=== PATIENT | female | born 1955 | race Asian ===

== ENCOUNTER 2016-02-23 10:39 | Day surgery (SDC) | payer MEDICARE, OTHER ==
[2016-02-22 11:48] VITALS: BMI 23.4
[~2016-02-23] VITALS: Ht 157.5 cm; Wt 48.1 kg
[~2016-02-23 10:39] MED LIST: AMLO-147 PO; APIX2.5T PO; CARV6.25 PO; CLOP75TA27 PO; HYDR-3671 PO; LANT3I SC; SEVE2.4P3 PO
[2016-02-23] MEDS ORDERED: AMLO-145 PO (11:23)
[2016-02-23] MEDS ORDERED: ATOR40TA68 PO (11:24)
[2016-02-23 11:28] VITALS: Ht 157.5 cm; Wt 48.1 kg
[2016-02-23 11:31] VITALS: BP 136/67; PULSE 86; RESP 18
[2016-02-23] MEDS ORDERED: MIDAZOLAM 1 MG/ML 2 ML INJ ONE (12:39)
[2016-02-23] MEDS ORDERED: IOHEXOL 350MG/ML 50 ML BTL ONE (12:39)
[2016-02-23] MEDS ORDERED: FENTAnyl 50 MCG/ML VIAL ONE (12:39)
[2016-02-23] MEDS ORDERED: LIDOCAINE 1% (MDV) 20 ML INJ ONE (12:39)
[2016-02-23] MEDS ORDERED: SOD CHLORIDE 0.9% 500 ML ONE (13:19)
[2016-02-23] MEDS ORDERED: HEPARIN 1000 UNITS/NS (A-LINE) 1,000 ML ONE (13:20)
[2016-02-23 13:37] VITALS: BP 121/20; PULSE 68; RESP 16
--- NOTE | 2016-02-23 15:39 | OPR ---
DATE OF OPERATION: 02/23/2016 PREOPERATIVE DIAGNOSIS: Failing left arm AV graft POSTOPERATIVE DIAGNOSIS: Failing left arm AV graft. PROCEDURE PERFORMED: Left arm arteriovenous fistulogram with percutaneous angioplasty of the arteri al anastomosis and distal brachial artery. SURGEON: Courtney Murray MD ANESTHESIA: Local anesthesia. ESTIMATED BLOOD LOSS: Minimal. COMPLICATIONS: No intraprocedural complications. INDICATIONS: This is a 60-year-old woman with end-stage renal disease who has been on dialysis now for more than a year. She has a left upper arm AV graft that thrombosed about a month ago. I declo tted it, and I noted she still had a narrowing at the arterial anastomosis. At that point, I had se veral sheaths in, and it would have been very difficult to treat, so I brought her back in to treat the arterial anastomosis. The graft has been functioning, and there is a decent thrill, but it is s everely narrowed right at the arterial anastomosis. PROCEDURE: The patient was brought to the tender labor and placed on the table in supine position. The left arm was prepped and draped in the usual sterile fashion. I began by infiltrating over the gra ft in the mid biceps region. I then punctured the graft pointing toward the elbow with the micropun cture needle. An 0.018 wire was inserted through the needle into the graft, and a micropuncture she ath was advanced over the wire into the graft. I then advanced an 0.035 wire into the graft and the n extensive 6-Vietnamese sheath over the wire and into the graft and then did an AV fistulogram that liang wed the graft itself is patent, the venous outflow is widely patent, and the central veins are paten t. There is a severe, greater than 95%, stenosis at the arterial anastomosis. It is really in the brachial artery extending right into the proximal graft. I advanced the Glidewire through the proxi mal anastomosis and into the proximal brachial artery. I then used the loop and then angiopla stied the arterial anastomosis and the brachial artery at the anastomosis with a 4 x 4 cm balloon to 8 atmospheres with no residual stenosis, and there was brisk flow in the graft. I removed all the catheters, sheaths, and wires, put a 4-0 Monocryl pursestring suture in the puncture site, and there was good hemostasis with a good thrill at the end of the procedure. She tolerated the procedure we ll without any complications. Dictated By: COURTNEY PICKERING/KENNY Conf#: [id number] DID#: [id number] CC: Vee Sampson MD; MILTON ESPINOZA MD;*EndCC*
== END 2016-02-23 14:40 | disposition home or self-care (01) ==
LOC: SDS 10:39
PROVIDERS: ATTEND Surgery Vascular Surgery
DX: T82.858A Stenosis of other vascular prosthetic devices, implants and grafts, initial encounter (principal); I12.0 Hypertensive chronic kidney disease with stage 5 chronic kidney disease or end stage renal disease; N18.6 End stage renal disease; Z99.2 Dependence on renal dialysis; E11.22 Type 2 diabetes mellitus with diabetic chronic kidney disease; Z79.82 Long term (current) use of aspirin; Y83.2 Surgical operation with anastomosis, bypass or graft as the cause of abnormal reaction of the patient, or of later complication, without mention of misadventure at the time of the procedure
CPT/HCPCS: 36901; 36902; 82962; 84132; C1725; C1769; C1894; J1644; J2250; J3010; J7040; Q9967

== ENCOUNTER 2016-06-21 10:51 | Day surgery (SDC) | payer MEDICARE, OTHER ==
[~2016-06-21] VITALS: Ht 154.9 cm; Wt 51.0 kg
[~2016-06-21 10:51] MED LIST changes: +AMLO-145 PO; -AMLO-147 PO; +ATOR40TA68 PO
[2016-06-21 12:02] VITALS: BP 103/59; PULSE 79; RESP 18; Ht 154.9 cm; Wt 51.0 kg
[2016-06-21 12:04] LABS: ADD SCAN DIFF NO
[2016-06-21 12:09] LABS: BASOPHILS % 0.5 % (0.0-2.0); EOSINOPHILS # 0.1 10^3/ul (0.0-0.5); EOSINOPHILS % 1.3 % (0.0-7.0); HEMATOCRIT 29.7 % (37.0-47.0); HEMOGLOBIN 10.4 g/dl (12.0-16.0); LYMPHOCYTES # 1.7 10^3/ul (0.8-2.9); LYMPHOCYTES % 20.6 % (15.0-51.0); MEAN CORPUSCULAR HEMOGLOBIN 33.9 pg (29.0-33.0); MEAN CORPUSCULAR VOLUME 96.7 fl (82.0-101.0); MEAN PLATELET VOLUME 9.1 fl (7.4-10.4); MONOCYTE # 0.7 10^3/ul (0.3-0.9); MONOCYTES % 8.5 % (0.0-11.0); NEUTROPHIL # 5.6 10^3/ul (1.6-7.5); NEUTROPHILS % 68.9 % (39.0-77.0); PLATELET COUNT 214 10^3/UL (140-415); RED BLOOD COUNT 3.07 10^6/ul (4.20-5.40); RED CELL DISTRIBUTION WIDTH 13.8 % (11.5-14.5); WHITE BLOOD COUNT 8.2 10^3/ul (4.8-10.8)
[2016-06-21 12:19] LABS: ALBUMIN 4.6 g/dl (3.3-4.9)
[2016-06-21 12:21] LABS: POTASSIUM 3.9 mmol/L (3.5-5.1)
[2016-06-21 12:22] LABS: BILIRUBIN,INDIRECT 0.5 mg/dl (0-1.1); BILIRUBIN,TOTAL 0.5 mg/dl (0.2-1.3)
[2016-06-21 12:23] LABS: ALBUMIN/GLOBULIN RATIO 1.24; TOTAL PROTEIN 8.3 g/dl (6.1-8.1)
[2016-06-21 12:24] LABS: PT RATIO 1.1
[2016-06-21 12:25] LABS: PARTIAL THROMBOPLASTIN TIME 32.5 Sec (25.0-35.0)
[2016-06-21 12:26] LABS: CALCIUM 8.4 mg/dl (8.4-10.2); CREATININE 4.2 mg/dl (0.44-1.00)
[2016-06-21 12:48] LABS: INR 1.1; PROTIME 14.2 Sec (12.2-14.2)
[2016-06-21] MEDS ORDERED: LIDOCAINE 1% (MDV) 20 ML INJ ONE (13:33)
[2016-06-21] MEDS ORDERED: IODIXANOL LOCM 100 ML BTL ONE (13:33)
[2016-06-21] MEDS ORDERED: HEPARIN 1000 UNITS/NS (A-LINE) 1,000 ML ONE (13:33)
[2016-06-21 14:08] VITALS: BP 110/63; PULSE 74; RESP 16
--- NOTE | 2016-06-21 14:13 | OPR ---
DATE OF OPERATION: 06/21/2016 PREOPERATIVE DIAGNOSIS: Failing left arm arteriovenous graft. POSTOPERATIVE DIAGNOSIS: Failing left arm arteriovenous graft. PROCEDURE PERFORMED: 1. Left arm arteriovenous fistulogram. 2. Percutaneous venoplasty of venous limb of AV graft. SURGEON: Courtney Murray MD ANESTHESIA: Local anesthesia. ESTIMATED BLOOD LOSS: Minimal. COMPLICATIONS: No intraprocedural complications. INDICATIONS: A 60-year-old woman. She has left upper arm AV graft. She has had multiple problems with access in the past, and I placed a Viabahn across the venous anastomosis of the graft about 6 m onths ago after a declot. The graft again is very pulsatile, and there is high pressure when she go es to dialysis. I brought her in today for a fistulogram. PROCEDURE: The patient was brought to the solar lab technician and placed on the table in supine position. Lef t arm was prepped and draped in the usual sterile fashion. I began by infiltrating over the AV radha t in its midportion, using about 5 mL of 1% Xylocaine. Using micropuncture needle to enter the radha t, an 0.018 wire was inserted through the needle into the graft, and a micropuncture sheath was adva nced over the wire into the graft. I then did an AV fistulogram. This showed the venous outflow wa s almost obstructed. The venous stent at the venous anastomosis was wide open, and the outflow vein s were all widely patent with no central venous stenosis; however, the graft just proximal to the st ent was very compressed and almost occluded. It was a 90% stenotic site. The arterial anastomosis was patent. She has what looks like a very high radial artery takeoff. That is what the graft come s off of. The more distal radial artery appears occluded, but she has good flow down through the ul marjan into the arm. I advanced an 0.035 Glidewire through the catheter and into the central veins. I exchanged the micropuncture sheath for a 6-Malian sheath over the wire, and then I used a 7 mm x 10 cm balloon to angioplasty the entire venous limb of the graft where it was stenotic to 14 atmospher es. Post venoplasty, there was no residual stenosis, and there was now a nice soft thrill, whereas prior to the venoplasty, it was just pulsatile. I then removed the catheter sheaths and wires. We held pressure on the puncture site until there was good hemostasis, and then she was transferred [facility] to [facility] stay. She is going to go home, and she can go back to dialysis tomorrow to use the graft . I will see her back in my office in 2 weeks. Dictated By: COURTNEY PICKERING/KENNY Conf#: [id number] DID#: [id number] CC: SHELLI INFANTE MD; Vee Sampson MD; Trey Johnson DO;*EndCC*
[2016-06-23] MEDS ORDERED: IODIXANOL LOCM 50 ML BTL ONE ×3 (14:00→15:34)
[2016-06-23] MEDS ORDERED: LIDOCAINE 1% (MDV) 20 ML INJ ONE (14:00)
[2016-06-23] MEDS ORDERED: HEPARIN 1000 UNITS/NS (A-LINE) 1,000 ML ONE (14:39)
[2016-06-23] MEDS ORDERED: HEPARIN 1000 UNITS/ML 10 ML INJ ONE (14:39)
== END 2016-06-21 14:45 | disposition home or self-care (01) ==
LOC: SDS 10:51
PROVIDERS: ATTEND Surgery Vascular Surgery
DX: T82.898A Other specified complication of vascular prosthetic devices, implants and grafts, initial encounter (principal); Y83.8 Other surgical procedures as the cause of abnormal reaction of the patient, or of later complication, without mention of misadventure at the time of the procedure; Y92.89 Other specified places as the place of occurrence of the external cause; I12.0 Hypertensive chronic kidney disease with stage 5 chronic kidney disease or end stage renal disease; N18.6 End stage renal disease; Z79.82 Long term (current) use of aspirin; E11.9 Type 2 diabetes mellitus without complications
CPT/HCPCS: 36901; 36902; 80053; 82962; 85025; 85610; 85730; C1725; C1760; C1769; C1894; J1644; Q9967

== ENCOUNTER 2016-06-23 12:53 | Emergency (ER) | payer MEDICARE, OTHER ==
[~2016-06-23] VITALS: Ht 157.5 cm; Wt 62.1 kg
[2016-06-23 12:54] VITALS: Ht 157.5 cm; Wt 62.1 kg
--- NOTE | 2016-06-23 14:36 | ERD ---
ER Documentation Chief Complaint Date/Time DATE: 06/23/16 TIME: 14:34 Chief Complaint PER PT SEND TO ER DUE AV FISTULA CLOOGED HPI This 60-year-old female comes to the emergency room because she is having a problem with her left upper arm dialysis graft. Dr. Larson called me prior to the patient's arrival and stated that he performed a study in his office and that no further imaging needs to be done. Has the patient scheduled for Medical Appointment Scheduler in 30 minutes. She states that she missed her dialysis by 1 day but does not have any symptoms of shortness of breath. She also does not have any pain currently in her left upper arm graft. She does state that she has an abnormal sensation at the graft because it is harder than usual. ROS All systems reviewed and are negative except as per history of present illness. Medications Home Meds Reported Medications Atorvastatin* (Atorvastatin*) 40 Mg Tablet, 40 MG PO QHS, #30 TAB 02/23/16 Amlodipine Besylate* (Amlodipine Besylate*) 5 Mg Tablet, 5 MG PO DAILY, #30 TAB 02/23/16 Sevelamer Carbonate* (Renvela*) 2.4 Gm Powd.pack, 2.4 GM PO WITH MEALS, PACKET 01/05/16 Insulin Glargine* (Lantus*) 100 Unit/Ml Soln, 18 UNIT SC QAM, #1 VIAL 01/05/16 Clopidogrel Bisulfate (Clopidogrel) 75 Mg Tablet, 75 MG PO DAILY, #30 TAB 09/17/15 Apixaban* (Eliquis*) 2.5 Mg Tablet, 2.5 MG PO DAILY, #180 09/17/15 Hydralazine Hcl* (Hydralazine Hcl*) 25 Mg Tab, 25 MG PO BID, #180 09/17/15 Carvedilol* (Coreg*) 6.25 Mg Tablet, 6.25 MG PO BID, TAB 12/28/14 Allergies Allergies: Coded Allergies: No Known Allergy (Unverified , 06/21/16) PMhx/Soc History of Surgery: Yes (HEART STENT X2 2016, AVF LEFT) Anesthesia Reaction: No Hx Neurological Disorder: No Hx Respiratory Disorders: No Hx Cardiac Disorders: Yes (HTN,HLP,CAD) Hx Psychiatric Problems: No Hx Miscellaneous Medical Probl: No Hx Alcohol Use: No Hx Substance Use: No Hx Tobacco Use: No Physical Exam Vitals Vital Signs Date Time Temp Pulse Resp B/P Pulse Ox O2 Delivery O2 Flow Rate FiO2 06/23/16 12:54 97.9 89 18 134/64 99 Physical Exam Const: [] No distress Head: Atraumatic Eyes: Normal Conjunctiva ENT: Normal External Ears, Nose and Mouth. Neck: Full range of motion..~ No meningismus. Resp: Clear to auscultation bilaterally Cardio: Regular rate and rhythm, no murmurs Skin: No petechiae or rashes Back: No midline or flank tenderness Ext: No cyanosis, or edema, left upper arm graft with induration and purpura. No active bleeding. No palpable thrill. Distal pulses are intact all 4 extremities. Neur: Awake and alert and oriented 3, no focal deficits Psych: Normal Mood and Affect Procedures/MDM Patient was here for vascular access for dialysis. According to the vascular surgeon, Dr. Delaney, she was going to be taken straight to the Medical Appointment Scheduler and nothing needed to be done. I am unaware of any need for dialysis but she will not be coming back to the emergency room from the Medical Appointment Scheduler. She is currently receiving definitive management and she has left on schedule to the Medical Appointment Scheduler. If she returns to the emergency room I will reevaluate her and decide on what workup needs to be done. At this point she is under the care of vascular surgery. Departure Diagnosis: Primary Impression: Clotted dialysis shunt Condition: Stable CONNOR COLE DO June 23, 2016 14:36
--- NOTE | 2016-06-26 11:34 | OPR ---
DATE OF OPERATION: 06/23/2016 PREOPERATIVE DIAGNOSIS: Thrombosed left arm arteriovenous graft. POSTOPERATIVE DIAGNOSIS: Thrombosed left arm arteriovenous graft. PROCEDURE PERFORMED: 1. Percutaneous mechanical thrombectomy of left arm AV graft. 2. Catheter placement into the AV graft, left arm arteriovenous fistulogram percutaneous stent plac ement across the venous limb of the AV graft. SURGEON: Courtney Murray MD ANESTHESIA: Local anesthesia. ESTIMATED BLOOD LOSS: Minimal. COMPLICATIONS: No intraprocedural complications. INDICATIONS: A 60-year-old woman with end-stage renal disease, has been on dialysis for several yea rs. She has a left upper arm AV graft. It was very pulsatile and had high pressures. I did a fist ulogram earlier in the week and it showed that there is a covered stent across the venous anastomosi s, but the distal portion of the graft proximal to the stent had a subtotal occlusion. I treated th at and at the end of the procedure, there was a good thrill in the graft and it seemed to be working well. She went to dialysis the next day and it was occluded, so we brought her in today for thromb ectomy of the AV graft. PROCEDURE: The patient was brought to the cath lab radiology technician and placed on the table in the supine position. Left arm was prepped and draped in the usual sterile fashion. I began by infiltrating over the gra ft in the mid portion using about 5 mL of 1% Xylocaine. Using micropuncture needle, I entered the g raft pointing towards the shoulder. I placed 0.018 wire through the needle into the graft and a marce ropuncture sheath was advanced over the wire into the graft. I then advanced an 0.035 Glidewire int o the central veins and exchanged the micropuncture sheath for a 6-Iranian sheath over the wire. I a dvanced a Kumpe catheter into the central veins and injected some contrast and saw that the axillary vein was patent and that the occlusion was really in the graft just proximal to the venous stent in the venous outflow. I gave her 5000 units of heparin inched through Kumpe catheter, left the Glidewire in place and then used a 7 mm x 4 cm balloon, I just did multiple inflations through the venous limb of the graft to macerate the clot and kind of flush it out. It remained diffusely irregular and stenotic and the gr aft itself was just collapsing, possibly from hematoma or constriction of the scar tissue around the graft. I then opened the arterial limb. I placed a second catheter pointing towards the wrist in the venous limb of the graft using the same technique that I had used to place the initial catheter, it was a 6-Iranian sheath. I then placed a 4-Iranian Bala catheter into the brachial artery and b rought it back several times removing the clot from the arterial limb of the graft. There was now a good pulse in the graft, but the venous limb just remained severely stenotic. I basically placed a 7 mm x 50 mm, Viabahn covered stent across the stenotic venous limb of the graft. It sort of overl apped a little bit with the previously placed stent. I exchanged for an 0.018 wire and V18 control wire and then did the stent placement over the wire. This required removal of the sheath which was pointing towards the arterial limb as well. I took th at out just prior to deploying the graft. I then postdilated with a 7 mm balloon again and there wa s a good thrill in the graft itself. There was still a little bit of clot I could see caught up at the puncture site for the remaining the sheath, so I removed that sheath and then put a 4-0 Monocryl pursestring suture there. I then punctured the graft closer down towards the arterial anastomosis, again pointing up towards the shoulder and then placed an 0.035 Glidewire and then a 6-Iranian sheat h and then ballooned the puncture site where there were still some clots hung up. I removed that an d sort of ironed out the rest of the graft and at this point now the graft was patent. No residual stenosis anywhere and had a good thrill. I removed the remaining sheath. I used a 4-0 Monocryl pur sestring around the puncture site and then placed a sterile dressing. She was discharged home [facility] she is going to go to dialysis tomorrow. Dictated By: COURTNEY PICKERING/KENNY Conf#: [id number] DID#: [id number] CC: MILTON ESPINOZA MD; SHELLI INFANTE MD;*End*
== END 2016-06-23 18:05 | disposition home or self-care (01) ==
LOC: E/R 12:53
DX: T82.868A Thrombosis due to vascular prosthetic devices, implants and grafts, initial encounter (principal); I10 Essential (primary) hypertension; I25.10 Atherosclerotic heart disease of native coronary artery without angina pectoris; E11.9 Type 2 diabetes mellitus without complications; Y73.2 Prosthetic and other implants, materials and accessory gastroenterology and urology devices associated with adverse incidents; Z79.4 Long term (current) use of insulin; Z98.61 Coronary angioplasty status
CPT/HCPCS: 36901; 99282; C1725; C1757; C1769; C1875; C1887; C1894; J1644; Q9967

== ENCOUNTER 2016-12-15 09:02 | Day surgery (SDC) | payer MEDICARE, OTHER ==
[~2016-12-15] VITALS: Ht 157.5 cm; Wt 50.8 kg
[2016-12-15] VITALS (12 sets, daily range): BP systolic 106–171; BP diastolic 60–80; PULSE 84–100; RESP 11–21; Ht 157.5 cm; Wt 50.8 kg
[~2016-12-15 09:02] MED LIST changes: +CEFAZOLIN 1 GM INJ ONE; +EPHEDrine SULFATE 50 MG/5 ML SYG ONE
[2016-12-15] MEDS ORDERED: HEPARIN 1000 UNITS/ML 10 ML INJ ONE (09:04)
[2016-12-15] MEDS ORDERED: LIDOCAINE 1% (MPF) 30 ML INJ ONE (09:04)
--- NOTE | 2016-12-15 09:41 | RADRPT ---
PROCEDURE: XR Chest. CLINICAL INDICATION: preop TECHNIQUE: Single frontal view of the chest was obtained COMPARISON: 02/16/15 FINDINGS: The heart and mediastinum are within normal limits. There is a right-sided Perma-Cath in place. There are multiple stents in the left upper extremity. The lungs are clear. There is no pleural effusion or pneumothorax. RPTAT: AA IMPRESSION: No acute disease. .Dawit Martinez MD, MD Date Time Electronically viewed and signed by .Dawit Martinez MD, MD on 12/15/2016 09:41 .S/
[2016-12-15] MEDS ORDERED: LANT3I SC (09:56)
--- NOTE | 2016-12-15 10:40 | HPN ---
Date/Time of Note Date/Time of Note DATE: 12/15/16 TIME: 10:40 Interval H&P Admission Note Pt. seen H&P reviewed: No system changes COURTNEY OSEGUERA MD Dec 15, 2016 10:40
[2016-12-15] MEDS ORDERED: LIDOCAINE 2% (SDV) 5 ML INJ ONE (11:03)
[2016-12-15] MEDS ORDERED: PROPOFOL 20 ML ONE (11:03)
[2016-12-15] MEDS ORDERED: FENTAnyl 50 MCG/ML VIAL ONE (11:04)
[2016-12-15] MEDS ORDERED: MIDAZOLAM 1 MG/ML 2 ML INJ ONE (11:04)
[2016-12-15] MEDS ORDERED: PHENYLephrine (100 MCG/ML) 5ML SYG ONE (11:34)
[2016-12-15] MEDS ORDERED: INSULIN ASPART [NOVOLOG] 3 ML PEN SC ONE (12:30)
[2016-12-15] MEDS ORDERED: FENTAnyl 50 MCG/ML VIAL IV PRN ×3 (12:30)
[2016-12-15] MEDS ORDERED: EPHEDrine SULFATE 50 MG/5 ML SYG IV PRN (12:30)
[2016-12-15] MEDS ORDERED: LABETALOL HCL 20MG INJ IV PRN (12:30)
[2016-12-15] MEDS ORDERED: OXYCODONE/ACETAMINOPHEN (5/325) TAB PO PRN ×2 (12:30)
[2016-12-15] MEDS ORDERED: METOCLOPRAMIDE 10 MG INJ IV PRN (12:30)
[2016-12-15] MEDS ORDERED: ONDANSETRON 4 MG INJ IV PRN (12:30)
--- NOTE | 2016-12-15 12:52 | SIPON ---
Date/Time of Note Date/Time of Note DATE: 12/15/16 TIME: 12:52 Operative Report Preoperative Diagnosis ESRD Postoperative Diagnosis same Operation/Procedure Performed Creation right arm brachio-basilic AVF 1st stage Surgeon see signature line assistant portfolio manager none Anesthesia: general Estimated blood loss: minimal Transfusion Required none Specimen none Grafts/Implants none Complications none COURTNEY OSEGUERA MD Dec 15, 2016 12:52
--- NOTE | 2016-12-15 12:52 | SIPON ---
Date/Time of Note Date/Time of Note DATE: 12/15/16 TIME: 12:52 Operative Report Preoperative Diagnosis ESRD Postoperative Diagnosis same Operation/Procedure Performed Creation right arm brachio-basilic AVF 1st stage Surgeon see signature line safety admin assistant none Anesthesia: general Estimated blood loss: minimal Transfusion Required none Specimen none Grafts/Implants none Complications none COURTNEY OSEGUERA MD Dec 15, 2016 12:52
--- NOTE | 2016-12-15 12:52 | SIPON ---
Date/Time of Note Date/Time of Note DATE: 12/15/16 TIME: 12:52 Operative Report Preoperative Diagnosis ESRD Postoperative Diagnosis same Operation/Procedure Performed Creation right arm brachio-basilic AVF 1st stage Surgeon see signature line hr administrative assistant none Anesthesia: general Estimated blood loss: minimal Transfusion Required none Specimen none Grafts/Implants none Complications none COURTNEY OSEGUERA MD Dec 15, 2016 12:52
--- NOTE | 2016-12-15 14:12 | RADRPT ---
Vent Rate: 72 bpm RR Interval: 0 msec [place] Interval: 150 msec QRS Duration: 76 msec QT Interval: 458 msec QTC Interval: 501 msec P-R-T [place]: 43 - 47 - 65 degrees Normal sinus rhythm Prolonged QT Abnormal ECG Electronically Signed By: Quan Giron [id number]
--- NOTE | 2016-12-15 14:12 | RADRPT ---
Vent Rate: 72 bpm RR Interval: 0 msec [place] Interval: 150 msec QRS Duration: 76 msec QT Interval: 458 msec QTC Interval: 501 msec P-R-T [place]: 43 - 47 - 65 degrees Normal sinus rhythm Prolonged QT Abnormal ECG Electronically Signed By: Quan Giron [id number]
--- NOTE | 2016-12-15 14:12 | RADRPT ---
Vent Rate: 72 bpm RR Interval: 0 msec [place] Interval: 150 msec QRS Duration: 76 msec QT Interval: 458 msec QTC Interval: 501 msec P-R-T [place]: 43 - 47 - 65 degrees Normal sinus rhythm Prolonged QT Abnormal ECG Electronically Signed By: Quan Giron [id number]
--- NOTE | 2016-12-15 14:48 | OPR ---
DATE OF OPERATION: 12/15/2016 PREOPERATIVE DIAGNOSIS: End-stage renal disease. POSTOPERATIVE DIAGNOSIS: End-stage renal disease. PROCEDURE PERFORMED: Creation of right arm AV fistula. SURGEON: Courtney Murray MD ANESTHESIA: LMA anesthesia. ESTIMATED BLOOD LOSS: Less than 50 mL. COMPLICATIONS: There were no intraprocedural complications. INDICATIONS: This is a 61-year-old diabetic hypertensive woman. She has end-stage renal disease an d has been on dialysis for several years. She has a left upper arm failed access. She had multiple problems with the access, it finally occluded and could not get it open about a month ago. She has a Perm-A-Cath in place. She has a good basilic vein in the upper arm on the right so I brought her in today for creation of a first stage brachiobasilic AV fistula that will need to be superficializ ed in a month or so once the vein has had a chance to mature. PROCEDURE: The patient was brought to the operating room and placed on the table in supine position . The right arm was prepped and draped in the usual sterile fashion. I had already marked the basi lic vein on the skin from the elbow all the way to the upper arm. There was good caliber. It was p atent all the way along the length of the vein. I also marked the brachial artery at the elbow. On ce she was prepped and draped, I anesthetized the antecubital region with about 10 mL of 1% Xylocain e. I then made a curvilinear incision at the beginning of the brachial artery right at the elbow an d extending up the medial aspect of the upper arm over the basilic vein. The incision was only abou t 2-3 cm in length. I then divided the subcutaneous tissues using electrocautery, carefully dissect ed out the basilic vein and traced it down to below the elbow were it got very small and I ligated t his with surgical clips and then divided it. I flushed it, it was a good sized vein. It was patent , it flushed easily. I then cut the connective tissue overlying the brachial artery pulse in the me dial aspect of the incision. I carefully dissected out the brachial artery just above the elbow and once I had it dissected out I clamped the artery proximal and distally and made an 8 mm long anteri or arteriotomy. I then spatulated the end of the vein to fit the arteriotomy and anastomoses of the vein to the side of the artery using a 6-0 Prolene suture in a running standard surgical fashion. I removed the clamps from the artery. There was a good thrill in the fistula. There was good hemos tasis. I then closed the skin incision in 2 layers using an inner layer of 3-0 Vicryl and an outer layer of 4-0 Monocryl subcuticular suture. Sterile dressing was applied. I examined the hand, it w as warm and pink. There was a 2+ radial pulse. She was transferred to the recovery room in stable condition. Dictated By: COURTNEY PICKERING/KENNY Conf#: [id number] DID#: [id number] CC: MILTON ESPINOZA MD;*End*
== END 2016-12-15 14:35 | disposition home or self-care (01) ==
LOC: SDS 09:02
PROVIDERS: ATTEND Surgery Vascular Surgery
DX: I12.0 Hypertensive chronic kidney disease with stage 5 chronic kidney disease or end stage renal disease (principal); N18.6 End stage renal disease; E11.22 Type 2 diabetes mellitus with diabetic chronic kidney disease; Z99.2 Dependence on renal dialysis; Z79.4 Long term (current) use of insulin; E78.5 Hyperlipidemia, unspecified; I25.10 Atherosclerotic heart disease of native coronary artery without angina pectoris; Z95.5 Presence of coronary angioplasty implant and graft; I25.2 Old myocardial infarction
CPT/HCPCS: 36821; 71010; 80053; 82962; 85025; 85610; 85730; 93005; J0690; J1644; J2250; J2370; J3010; J1815

== ENCOUNTER 2017-03-09 06:36 | Day surgery (SDC) | END 2017-03-09 13:35 | disposition home or self-care (01) ==

== ENCOUNTER 2017-03-13 18:24 | Inpatient (IN) | END 2017-03-14 18:53 | disposition home or self-care (01) | DRG 682 ==

== ENCOUNTER 2018-02-08 07:27 | Day surgery (SDC) | END 2018-02-08 14:37 | disposition home or self-care (01) ==